=== PATIENT | female | born 1945 | race Caucasian/White ===

== ENCOUNTER 2017-11-07 07:42 | Day surgery (SDC) | payer MEDICARE, OTHER ==
[~2017-11-07] VITALS: Ht 165.1 cm; Wt 100.5 kg
[2017-11-07] VITALS (12 sets, daily range): BP systolic 112–136; BP diastolic 56–70
[2017-11-07 08:33] LABS: EOSINOPHILS % (AUTO) 4.3 % (0.0-8.0); LYMPHOCYTES % (AUTO) 20.3 % (21.0-51.0); MEAN CORPUSCULAR HEMOGLOBIN 27.6 pg (27.0-33.0); MEAN CORPUSCULAR HGB CONC 33.1 g/dL (32.0-36.0); MEAN CORPUSCULAR VOLUME 83.4 fL (79-99); MONOCYTES % (AUTO) 7.9 % (3.0-13.0); NEUTROPHILS % (AUTO) 66.5 % (40.0-77.0); PLATELET COUNT (AUTO) 216 K/uL (130-400); RED BLOOD CELL COUNT(AUTO) 4.92 MIL/uL (4.00-5.50); RED CELL DISTRIBUTION WIDTH 14.7 % (11.0-15.5); WHITE BLOOD COUNT (AUTO) 7.8 K/uL (4.8-10.8)
[2017-11-07 08:45] LABS: CREATININE 0.8 mg/dL (0.5-1.5); POTASSIUM 4.8 mmol/L (3.5-5.1)
[2017-11-07] MEDS: CEFTRIAXONE SODIUM 1 GM IVP SCH ×2 (09:00→12:35)
[2017-11-07] MEDS ORDERED: SODIUM CHLORIDE 0.9% 1000ML 1,000 ML IV ONE (09:48)
[2017-11-07] MEDS ORDERED: EXCEES PO (10:37)
[2017-11-07] MEDS ORDERED: NAPR220T57 PO (10:37)
[2017-11-07] MEDS ORDERED: ISOVUE-370 50ML VIAL IV ONE (11:26)
[2017-11-07] MEDS ORDERED: PROPOFOL 10 MG/ML 20ML VIAL IV ONE (12:33)
[2017-11-07] MEDS ORDERED: MIDAZOLAM HCL 1 MG/ML 2ML VIAL ONE (12:33)
[2017-11-07] MEDS ORDERED: FENTANYL CITRATE PF 50 MCG/1 ML 2ML VIAL ONE (12:33)
[2017-11-07] MEDS ORDERED: EPHEDRINE SULFATE 50 MG/ML AMPULE ONE (12:44)
[2017-11-07] MEDS ORDERED: ONDANSETRON HCL 4 MG/2 ML VIAL ONE (12:45)
[2017-11-07] MEDS ORDERED: LIDOCAINE HCL 2% JELLY 5 ML ONE (12:45)
[2017-11-07] MEDS ORDERED: LIDOCAINE PF 2% 5ML ABBOJECT ONE (12:45)
[2017-11-07] MEDS ORDERED: PHENAZOPYRIDINE HCL 200 MG TABLET ONE (14:34)
== END 2017-11-07 15:18 | disposition home or self-care (01) ==
LOC: DAH 07:42
PROVIDERS: ATTEND Urology
DX: N13.2 Hydronephrosis with renal and ureteral calculous obstruction (principal); N13.1 Hydronephrosis with ureteral stricture, not elsewhere classified; Z98.890 Other specified postprocedural states; Z79.899 Other long term (current) drug therapy; M19.90 Unspecified osteoarthritis, unspecified site
CPT/HCPCS: 36415; 52332; 74420; 80048; 85025; A4218; A4354; A4358; A4930; C1758 ×2; C1769; C2617; J0696; J2001; J2250; J2405; J2704; J3010; J3490; J7030 ×2; Q9967

== ENCOUNTER → 2017-11-27 | Outpatient (CLI) | payer MEDICARE, OTHER ==
[~2017-11-27] MED LIST: FUROSEMIDE 10 MG/ML 4ML VIAL ONE; NAPR220T57 PO
== END | disposition home or self-care (01) ==
LOC: RAH 14:48
PROVIDERS: ATTEND Urology
DX: Q62.11 Congenital occlusion of ureteropelvic junction (principal)
CPT/HCPCS: 78708; A9562; J1940

== ENCOUNTER 2018-03-06 07:35 | Day surgery (SDC) | payer MEDICARE ==
[2018-03-04 16:07] VITALS: BP 140/75
[2018-03-04 16:13] LABS: BASOPHILS % (AUTO) 1.1 % (0.0-5.0); EOSINOPHILS % (AUTO) 5.5 % (0.0-8.0); HEMATOCRIT 41.8 % (36-48); LYMPHOCYTES % (AUTO) 28.2 % (21.0-51.0); MEAN CORPUSCULAR HEMOGLOBIN 27.8 pg (27.0-33.0); MEAN CORPUSCULAR VOLUME 84.3 fL (79-99); MONOCYTES % (AUTO) 7.3 % (3.0-13.0); NEUTROPHILS % (AUTO) 57.9 % (40.0-77.0); PLATELET COUNT (AUTO) 204 K/uL (130-400); RED BLOOD CELL COUNT(AUTO) 4.96 MIL/uL (4.00-5.50); RED CELL DISTRIBUTION WIDTH 14.5 % (11.0-15.5); WHITE BLOOD COUNT (AUTO) 8.7 K/uL (4.8-10.8)
[2018-03-04 16:22] LABS: CREATININE 0.8 mg/dL (0.5-1.5); POTASSIUM 5.1 mmol/L (3.5-5.1)
[~2018-03-06] VITALS: Ht 163.8 cm; Wt 102.4 kg
[2018-03-06] VITALS (14 sets, daily range): BP systolic 117–133; BP diastolic 62–75
[2018-03-06] MEDS: CEFTRIAXONE SODIUM 1 GM IVP SCH ×2 (06:00→12:35)
[~2018-03-06 07:35] MED LIST changes: +FAMOTIDINE/PF 20 MG/2 ML VIAL IV ONE; -FUROSEMIDE 10 MG/ML 4ML VIAL ONE; +NAPR-1141 PO; -NAPR220T57 PO; +OXYB5TAB PO; +POTA15TA11 PO
[2018-03-06] MEDS ORDERED: LACTATED RINGERS 1000ML 1,000 ML IV ONE (08:03)
[2018-03-06] MEDS ORDERED: LIDOCAINE PF 2% 5ML ABBOJECT ONE (09:02)
[2018-03-06] MEDS ORDERED: ONDANSETRON HCL 4 MG/2 ML VIAL ONE (09:02)
[2018-03-06] MEDS ORDERED: PROPOFOL 10 MG/ML 20ML VIAL IV ONE ×2 (09:03→12:36)
[2018-03-06] MEDS ORDERED: EPHEDRINE SULFATE 50 MG/ML AMPULE ONE (12:39)
[2018-03-06] MEDS ORDERED: ALBUMIN (HUMAN) 5% 250 ML IV ONE (12:58)
[2018-03-06] MEDS ORDERED: ESMOLOL HCL 10 MG/ML 10 ML VIAL ONE (13:33)
[2018-03-06] MEDS ORDERED: KETOROLAC TROMETHAMINE 15MG/ML ONE (13:57)
[2018-03-06] MEDS ORDERED: PHENAZOPYRIDINE HCL 200 MG TABLET ONE (14:58)
== END 2018-03-06 15:40 | disposition home or self-care (01) ==
LOC: DAH 07:35
PROVIDERS: ATTEND Urology
DX: N20.0 Calculus of kidney (principal); N13.5 Crossing vessel and stricture of ureter without hydronephrosis; M19.90 Unspecified osteoarthritis, unspecified site; Z96.653 Presence of artificial knee joint, bilateral; Z98.51 Tubal ligation status; Z98.890 Other specified postprocedural states; Z79.899 Other long term (current) drug therapy; Z82.49 Family history of ischemic heart disease and other diseases of the circulatory system
CPT/HCPCS: 36415; 50590; 52310; 80048; 85025; 88300; 93005 ×2; A4218; A4358; A4510; A4600; J0696; J1885; J2001; J2405; J2704 ×2; J3490 ×2; J7120; P9045

== ENCOUNTER → 2018-03-31 | Outpatient (CLI) | payer MEDICARE ==
[~2018-03-31] MED LIST changes: -FAMOTIDINE/PF 20 MG/2 ML VIAL IV ONE
== END | disposition home or self-care (01) ==
LOC: RAH 14:40
PROVIDERS: ATTEND Urology
DX: N20.0 Calculus of kidney (principal); M41.84 Other forms of scoliosis, thoracic region
CPT/HCPCS: 74018

== ENCOUNTER → 2018-06-25 | Outpatient (CLI) | payer MEDICARE | END | disposition home or self-care (01) | LOC: OIH 09:40 | PROVIDERS: ATTEND Urology | DX: N13.2 Hydronephrosis with renal and ureteral calculous obstruction (principal); K57.30 Diverticulosis of large intestine without perforation or abscess without bleeding; I70.90 Unspecified atherosclerosis; M47.815 Spondylosis without myelopathy or radiculopathy, thoracolumbar region; K76.0 Fatty (change of) liver, not elsewhere classified | CPT/HCPCS: 74176 ==

== ENCOUNTER → 2019-04-13 | Outpatient (CLI) | payer MEDICARE ==
[~2019-04-13] MED LIST changes: -OXYB5TAB PO; +OXYB5TAB4 PO
== END | disposition home or self-care (01) ==
LOC: RAH 09:56
PROVIDERS: ATTEND Urology
DX: N13.2 Hydronephrosis with renal and ureteral calculous obstruction (principal); N28.1 Cyst of kidney, acquired
CPT/HCPCS: 74176

== ENCOUNTER 2019-08-06 13:21 | Emergency (ER) | payer MEDICARE ==
[~2019-08-06 13:21] MED LIST changes: +OXYB-66 PO; -OXYB5TAB4 PO
[2019-08-06] MEDS ORDERED: HYDROCODONE/ACETAMINOPHEN 10/325 MG TAB ONE (15:34)
[2019-08-06] MEDS ORDERED: KETOROLAC TROMETHAMINE 30MG/ML ONE (16:27)
== END 2019-08-06 17:38 | disposition home or self-care (01) ==
LOC: EDH 13:21
DX: S90.31XA Contusion of right foot, initial encounter (principal); M25.551 Pain in right hip; Z79.899 Other long term (current) drug therapy; W18.39XA Other fall on same level, initial encounter; Y93.89 Activity, other specified; Y92.89 Other specified places as the place of occurrence of the external cause; Y99.8 Other external cause status
CPT/HCPCS: 72192; 73502; 73620; 96372; 99284; J1885

== ENCOUNTER → 2019-09-23 | Outpatient (CLI) | payer MEDICARE | END | disposition home or self-care (01) | LOC: OIH 13:31 | PROVIDERS: ATTEND Internal Medicine | DX: I70.0 Atherosclerosis of aorta (principal); M47.815 Spondylosis without myelopathy or radiculopathy, thoracolumbar region | CPT/HCPCS: 71046 ==